=== PATIENT | female | born 1985 | race Hispanic/Latino ===

== ENCOUNTER → 2019-01-16 | Outpatient (CLI) | payer BC | END | disposition home or self-care (01) | LOC: RAH 10:58 | PROVIDERS: ATTEND Physical Medicine & Rehabilitation | DX: M54.12 Radiculopathy, cervical region (principal) | CPT/HCPCS: 72052 ==

== ENCOUNTER → 2019-04-16 | Outpatient (CLI) | payer SELFPAY | END | disposition home or self-care (01) | LOC: RAH 15:54 | PROVIDERS: ATTEND Physical Medicine & Rehabilitation | DX: M41.84 Other forms of scoliosis, thoracic region (principal); M47.14 Other spondylosis with myelopathy, thoracic region | CPT/HCPCS: 72146 ==

== ENCOUNTER → 2023-01-02 | Outpatient (CLI) | payer BC ==
[2023-01-02 12:06] LABS: BASOPHILS # (AUTO) 0.03 K/uL (0.00-0.20); BASOPHILS % (AUTO) 0.5 % (0.0-5.0); EOSINOPHILS # (AUTO) 0.18 K/uL (0.00-0.70); EOSINOPHILS % (AUTO) 3.1 % (0.0-8.0); HEMATOCRIT 37.1 % (36-48); IMMATURE GRANULOCYTE ABSOLUTE 0.01 K/uL (0-1); LYMPHOCYTES # (AUTO) 1.5 K/uL (1.0-4.8); MEAN CORPUSCULAR HEMOGLOBIN 27.3 pg (27.0-33.0); MEAN CORPUSCULAR HGB CONC 30.7 g/dL (32.0-36.0); MEAN CORPUSCULAR VOLUME 88.8 fL (79-99); MONOCYTES # (AUTO) 0.5 K/uL (0.1-1.0); MONOCYTES % (AUTO) 7.8 % (3.0-13.0); NEUTROPHILS # (AUTO) 3.6 K/uL (1.8-7.7); NEUTROPHILS % (AUTO) 62.4 % (40.0-77.0); PLATELET COUNT (AUTO) 284 K/uL (130-400); RED BLOOD CELL COUNT(AUTO) 4.18 MIL/uL (4.00-5.50); RED CELL DISTRIBUTION WIDTH 14.1 % (11.0-15.5); WHITE BLOOD COUNT (AUTO) 5.8 K/uL (4.8-10.8)
[2023-01-02 12:48] LABS: ALBUMIN 3.6 g/dL (3.5-5.0); BILIRUBIN,TOTAL 0.5 mg/dL (0.2-1.0); CREATININE 0.8 mg/dL (0.5-1.5); MAGNESIUM 1.7 mg/dL (1.80-2.40); PHOSPHORUS 3.5 mg/dL (2.5-4.9); POTASSIUM 3.7 mmol/L (3.5-5.1); T4 (THYROXINE) 8.4 ug/dL (4.7-13.3); THYROID STIMULATING HORMONE 0.96 uIU/mL (0.36-3.74); TOTAL PROTEIN, SERUM 7.4 g/dL (6.0-8.3)
== END | disposition home or self-care (01) ==
LOC: LAB 08:42
PROVIDERS: ATTEND Nurse Practitioner Acute Care
DX: R53.83 Other fatigue (principal)
CPT/HCPCS: 36415; 80050; 80053; 82607; 83735; 84100; 84402; 84403; 84436; 84443; 84479; 85025

== ENCOUNTER → 2023-08-12 | Outpatient (CLI) | payer BC | END | disposition home or self-care (01) | LOC: RAH 07-15 11:51 | PROVIDERS: ATTEND Physical Medicine & Rehabilitation | DX: M41.25 Other idiopathic scoliosis, thoracolumbar region (principal) | CPT/HCPCS: 72082 ==

== ENCOUNTER → 2023-09-19 | Outpatient (CLI) | payer BC | END | disposition home or self-care (01) | LOC: RAH 11:01 | PROVIDERS: ATTEND Physical Medicine & Rehabilitation | DX: N32.89 Other specified disorders of bladder (principal); N20.0 Calculus of kidney | CPT/HCPCS: 76770 ==